=== PATIENT | male | born 1960 | race Two or more races ===

== ENCOUNTER → 2024-11-10 | Outpatient (CLI) | payer MEDICAID, SELFPAY ==
--- NOTE | 2024-11-10 | XR_ITS ---
Examination: CT left lower extremity without intravenous contrast, without contrast. 2-D sagittal reconstructions. 2-D coronal reconstructions. 3-D reconstructions. Date and time of exam:November 10, 2024 11:50 AM INDICATIONS: Diagnosis primary osteoarthritis left knee left knee pain 5 years CTDI: vol (mGy):9.22 DLP: (mGycm):726 Technique: Multiple 1.25 mm axial sections of the left lower extremity without intravenous contrast have been obtained. 2-D sagittal and coronal reconstructions have been obtained. 3-D reconstructions have been obtained. Low dose protocols were performed. One or more of the following dose reduction techniques were used; automated exposure control, adjustment of the mA and/or KV according to patient size, use of iterative reconstruction technique. Findings: Moderate osteopenia Moderate narrowing left hip joint No left hip fracture or dislocation Left knee advanced tricompartment osteoarthritis, severe narrowing medial lateral and patellofemoral joints with osteophyte formation IMPRESSION: Advanced left knee tricompartment osteoarthritis
== END | disposition home or self-care (01) ==
PROVIDERS: Referring Provider Orthopaedic Surgery Adult Reconstructive Orthopaedic Surgery; Visit Provider Orthopaedic Surgery Adult Reconstructive Orthopaedic Surgery
DX: M17.12 Unilateral primary osteoarthritis, left knee (principal)
CPT/HCPCS: 73700

== ENCOUNTER 2024-11-14 07:54 | Outpatient (AMB) | payer MEDICAID, SELFPAY ==
[2024-11-14 08:20] VITALS: BP 148/88; PULSE 67; RESP 19; TEMP 36.6; O2SAT 92; BMI 29.5
--- NOTE | 2024-11-14 08:20 | PD.ORTHCLVIS ---
Vital signs 11/14/24 08:20 Height 1.65 m Height Method Stated Weight 80.513 kg Weight Measurement Method Standing Scale BMI 29.5 BP 148/88 H Blood Pressure Source Automatic Cuff Blood Pressure Location Left Upper Arm Position Sitting Respiration 19 Pulse 67 Pulse Source Monitor Temp 97.9 F Temp Source Temporal Artery Scan Pulse Oximetry (%) 92 L Oxygen Delivery Method Room Air Med/Allergies Allergies & Medications Allergies No Known Drug Allergies Allergy (Verified 11/24/24 10:45) Medication Reconciliation aspirin 81 mg tablet,delayed release 81 mg PO QDAY 07/29/24 [History Confirmed 11/21/24] atorvastatin 40 mg tablet 40 mg PO QDAY 07/29/24 [History Confirmed 11/21/24] diclofenac sodium 1 % topical gel 2 g topical QID 07/29/24 [History Confirmed 11/21/24] empagliflozin 25 mg tablet (Jardiance) 25 mg PO QAM 11/21/24 [History Confirmed 11/21/24] escitalopram oxalate 10 mg tablet 10 mg PO QDAY 11/21/24 [History Confirmed 11/21/24] gabapentin 100 mg capsule 100 mg PO QDAY 11/21/24 [History Confirmed 11/21/24] ibuprofen 800 mg tablet (IBU) 800 mg PO Q8H PRN pain 11/21/24 [History Confirmed 11/21/24] losartan 100 mg tablet 100 mg PO QDAY 11/21/24 [History Confirmed 11/21/24] metformin 850 mg tablet 850 mg PO QDAY 11/21/24 [History Confirmed 11/21/24] semaglutide 1 mg/dose (2 mg/1.5 mL) subcutaneous pen injector 2 mg subcut QWEEK 11/21/24 [History Confirmed 11/21/24] Exam Exam Patient is in no acute distress and is cooperative with the examination today. Breathing is nonlabored. Patient has a normal mood and affect. Bilateral extremities were evaluated and demonstrates sensation intact to light touch. Palpable pedal pulses are present. No significant edema is present. Bilateral hips were examined. The patient has no pain with log roll of the hips. Internal rotation to 30 degrees and external rotation to 30 degrees is painless. Negative FADIR. Right knee was examined today. The right knee is in reasonable alignment. Range of motion from 0-120 degrees. Knee is stable to varus and valgus as well as AP translation with <5mm. Patient has a negative McMurrays. There is no pain with patellofemoral compression and no crepitus noted. The knee is nontender to palpation. Left knee was examined today. The left knee is in varus alignment. Range of motion from 0-115 degrees. Knee is stable to varus and valgus as well as AP translation with <5mm. Patient has a negative McMurrays. There is no pain with patellofemoral compression and no crepitus noted. The knee is tender to palpation medially. Assessment and Plan Problem List (1) Osteoarthritis of left knee: Status: Acute Plan Patient is a 64-year-old male with left knee pain and left knee arthritis. We discussed nonoperative and operative options. The pain is affecting his quality life wound as discussed total knee replacement is a reasonable option We would have to remove the tibial screw. The nature and purpose of the total knee replacement, alternative method(s) of treatment, the material risks involved, and the possibility of complications were fully explained to the patient. The patient does NOT have any of the following contraindications to TKA: - Active infection of the knee joint, OR - Active systemic bacteremia, OR - Active skin infection or open wound at surgical site, OR - Neuropathic arthritis, OR - Severe, rapidly progressive neurological disease, OR - Severe medical condition that makes risks of surgery outweigh the potential benefit The patient was told the most common risks and complications associated with a total knee replacement include, but are not limited to: blood clots in the leg, fatal pulmonary embolism, dislocation of the prosthesis, intraoperative and postoperative fractures of the femur or tibia, infection, failure of the prosthesis or grafting materials, complications from anesthesia, reactions to blood transfusions, postoperative leg length inequality, instability of the knee replacement, nerve damage or injury, vascular injury, delayed wound healing, infection, other injury or even . In addition, there are risks associated with anesthesia given during this operation. Also, the patient was told that after undergoing a total knee replacement there may still be persistent pain or disability. The patient was informed that the success of this operation in part depends upon the mechanical devices which are going to be implanted and that these devices can fail or malfunction, and may need to be repaired or replaced and there are no guarantees as to the longevity of this device or its parts and that it or its parts could fail prematurely. The patient was also notified that during the course of surgery, there may be a need to use bone graft from donors, and that any bone graft used will be carefully screened for communicable diseases, including AIDS, hepatitis, Jameson-Creutzfeldt, or other diseases, but despite the screening procedures, there is a small chance that they could contract one of these diseases. Finally, the patient was asked to follow completely and fully with all advice and recommended treatments, and that recovery and ultimate outcome are affected by their compliance with recommended treatment. We discussed the risks, benefits and treatment alternatives, and the patient is interested in proceeding with surgery. We will try to set this up as expeditiously as possible. Office Procedures GNS Level of Care Nursing/Assessment Patient Status: Established Patient Nursing Assessment/Reassesment: Medication Reconciliation, Update PMH in EMR and Vital Signs Coordination of Care: Complex Care and Chronic Disease 1-5, Education Complex Pt/Fam, Consent,records obtained, informed consent, Results/Orders obtained and Staff clarify orders Established Patient Charge Established Patient Point Assignment: 95 Established Patient Point Charge: EP Level 3 (80-115) MA Intake Visit Data Collection New Patient or Established: Established Patient (seen at [facility] within 3 years) Reason for Visit:: PRE OP L TKA Seen by Clinical Staff ONLY (RN/MA): No Cytogenetics Laboratory Manager Required: No PCP or OBGYN visit in last 3 months: Yes Hx Now: No Do You Feel Safe at Home: Yes Authorities Contacted: N/A Questionairres Past Medical History Past Medical History Have you ever been diagnosed with any of the following: Cardiology Problems Hypertension: Yes Respiratory Problems Smoking: No Smoking Cessation Counseling: No Smoking Exposure: No Tobacco Use: No Subjective Visit Visit for: follow up visit and knee (LEFT) Immunization / Flu Flu Vaccine in the Last 12 Months: No Flu Vaccine Exclusion Criteria: No Exclusion Criteria History of Present Illness Chief complaint: Left knee pain Eduardo is a pleasant 64-year-old male with left knee pain and left knee arthritis. She does have a prior ACL surgery and 2 screws. We discussed we will remove it during surgery most likely, at least on the tibial side. Reports the pain is affecting his quality life and happiness. Pain Pain level (0-10): 8 Pain duration: WITH MOVEMENT Pain location: inside (medial) and anterior Pain quality: sharp and aching Pain timing: increases with activity and stairs Associated signs & symptoms: none Ambulatory data Ambulatory device: none Treatments Improvement with previous injections: No Improvement with PT: No Improvement with NSAIDS: no Review of Systems Review of Systems: All systems negative unless otherwise noted in HPI.
== END 2024-11-14 08:34 | disposition home or self-care (01) ==
LOC: HODSRG 07:54
PROVIDERS: Supervising Provider Orthopaedic Surgery Adult Reconstructive Orthopaedic Surgery; Visit Provider Orthopaedic Surgery Adult Reconstructive Orthopaedic Surgery
DX: M17.12 Unilateral primary osteoarthritis, left knee (principal); M25.562 Pain in left knee; I10 Essential (primary) hypertension
CPT/HCPCS: 99213; G0463

== ENCOUNTER 2024-11-24 10:30 | Day surgery (SDC) | payer MEDICAID, SELFPAY ==
--- NOTE | 2024-11-21 07:30 | EKG_ITS ---
[facility] Test Date: 2024-11-21 Pat Name: PARADISE LINARES Department: Room: - Gender: Male Information Assurance: MANOLO : 1960 Requested By: Mitesh Guallpa Order Number: [id number] Reading MD: Mitesh Guallpa Measurements Intervals [place] Rate: 65 P: 32 DE: 192 QRS: 30 QRSD: 123 T: 30 QT: 377 QTc: 393 Interpretive Statements SINUS RHYTHM MODERATE INTRAVENTRICULAR CONDUCTION DELAY NONSPECIFIC T-WAVE ABNORMALITY No previous ECG available for comparison /store/[email or web address]/[id number]
[2024-11-21 10:00] VITALS: BMI 29.3
[2024-11-21 10:51] LABS: Basophils % (Auto) 1 % (0-2.5); Eosinophils # (Auto) 0.1 Thou/mm3 (0.0-0.5); Eosinophils % (Auto) 2 % (0-10); Hematocrit 43.7 % (41.0-53.0); Hemoglobin 15.2 g/dL (13.5-16.0); Immature Granulocytes % (Auto) 0 % (0-0); Immature Granulocytes Auto 0.01 Thou/mm3 (0.00-0.00); Lymphocytes # (Auto) 2.5 Thou/mm3 (1.0-4.8); Lymphocytes % (Auto) 42 % (10-50); Mean Corpuscular HGB Conc 34.8 g/dl (31.0-37.0); Mean Corpuscular Hemoglobin 31.1 pg (25.0-35.0); Mean Corpuscular Volume 89 fL (80-100); Monocytes # (Auto) 0.4 Thou/mm3 (0.0-0.8); Monocytes % (Auto) 7 % (0-12); Neutrophils # (Auto) 2.9 Thou/mm3 (1.8-7.7); Neutrophils % (Auto) 49 % (37-80); Nucleated Red Blood Cell % 0 /100 WBC (0); Platelet Count 154 Thou/mm3 (140-440); RDW Standard Deviation 39.7 fL (35.1-43.9); Red Blood Count 4.89 Miln/mm3 (4.50-5.90)
[2024-11-21 10:59] LABS: Partial Thromboplastin Time 25.9 Seconds (22.0-36.0); Prothrombin Time 11.3 Seconds (9.0-12.2)
[2024-11-21 11:01] LABS: Alanine Aminotransferase 20 U/L (10-49); Albumin, Serum 4.8 gm/dL (3.4-4.8); Albumin/Globulin Ratio 2.2 (1.2-2.2); Alkaline Phosphatase 86 U/L (46-116); Anion Gap 7 (7-16); Aspartate Amino Transferase 20 U/L (0-34); BUN/Creatinine Ratio 17 Ratio (12-20); Bilirubin,Total 0.4 mg/dL (0.3-1.2); Blood Urea Nitrogen 15 mg/dL (9-23); Calcium 9.6 mg/dL (8.3-10.6); Calcium (Corrected) 9.6 mg/dL (8.5-10.1); Chloride 110 mMol/L (98-107); Creatinine (Component) 0.9 mg/dL (0.6-1.3); Estimated Creatinine Clearance 85.8 mL/min (>60); Globulin 2.2 gm/dL (2.3-3.5); Glucose 95 mg/dL (74-106); Osmolality,Calculated 287 (275-295); Potassium 4.6 mMol/L (3.4-5.1); Sodium 144 mMol/L (136-145); eGFR > 60 See Note
[2024-11-24] VITALS (15 sets, daily range): BP systolic 135–169; BP diastolic 83–99; PULSE 65–76; RESP 15–20; TEMP 36.2–37; O2SAT 94–98; BMI 28.3
--- NOTE | 2024-11-24 10:44 | CHAP ---
Patient expressed gratitude for prayer before their procedure.
[2024-11-24] MEDS: RINGERS LACTATED 1000 ML 1,000 ML 20 ML IV (11:15)
[2024-11-24] MEDS: PREGABALIN 75 MG CAPSULE PO (11:16)
[2024-11-24] MEDS: MELOXICAM 7.5 MG TABLET PO (11:16)
[2024-11-24] MEDS: ACETAMINOPHEN 325 MG TABLET 650 MG PO (11:16)
--- NOTE | 2024-11-24 14:59 | XR_ITS ---
Examination: Left knee 2 views Technique one AP lateral left knee 2 views Exam date and time: Every 2024 1634 hours INDICATIONS: Postop knee arthroplasty today. FINDINGS: Moderate osteopenia. Total left knee arthroplasty. Satisfactory alignment. No fracture IMPRESSION: Total left knee arthroplasty with satisfactory alignment
--- NOTE | 2024-11-24 15:01 | ESOP_ITS ---
Date of Procedure 11/24/24 Pre Op Diagnosis left knee posttraumatic arthritis Post Op Diagnosis left knee posttraumatic arthritis Procedure left total knee replacement robotic Findings full thickness cartilage loss and ostoephytes Procedure Description Indication: The patient is a 64 year old who has a long history of left knee pain. X-rays show degenerative arthritis involving the knee. Over the past several years the patient has had increasing pain, progressive limitation in function. He has failed conservative measures including activity modification, physical therapy, injections, anti-inflammatories, and assistive devices. After a lengthy discussion of the risks and benefits, the patient presents now for total knee replacement. The nature and purpose of the total knee replacement, alternative method(s) of treatment, the material risks involved, and the possibility of complications were fully explained to the patient. The patient was told the most common risks and complications associated with a total knee replacement include, but are not limited to blood clots in the leg, fatal pulmonary embolism, dislocation of the prosthesis, intraoperative and postoperative fractures of the femur or tibia, infection, failure of the prosthesis or grafting materials, complications from anesthesia, reactions to blood transfusions, postoperative leg length inequality, instability of the knee replacement, nerve damage or injury, vascular injury, delayed wound healing, infections, other injury or even . In addition, there are risks associated with anesthesia given during this operation, temporary or permanent numbness on the skin lateral to the incision can be a complication unique to total knee surgery, and kneeling can be painful after knee replacement surgery. Also, the patient was told that after undergoing a total knee replacement there may still be pain or disability. We discussed with the patient that we will be using a robot-assisted technology. We discussed that there is a possibility of converting to manual instrumentation. The patient was informed that the success of this operation in part depends upon the mechanical devices which are going to be implanted and that these devices can fail or malfunction, and may need to be repaired or replaced and there are no guarantees as to the longevity of this device or its part and that it or its parts could fail prematurely. Finally, the patient was asked to follow completely and fully with all advice and recommended treatments, and that recovery and ultimate outcome are affected by their compliance with recommended treatment. Surgical technique: Patient was marked and consented in the pre-operative area. The patient was brought to the operating room and placed on the operating table in a supine position. Prior to positioning, a timeout procedure was performed between the surgeon, the anesthesiologist, and the nursing staff where the patient and the operative side were identified and confirmed. After adequate general anesthetic was obtained, the left lower extremity was prepped and draped in the usual sterile fashion. A weight based dose of Cefazolin were administered within 1 hour prior to incision. The robot was preregistered and calirated before the incision. The extremity was exsanguinated with an esmarch badge and tourniquet inflated to 250mmHg. A midline incision was made. A median parapatellar arthrotomy was made. The patella was subluxed laterally. A medial release was performed to expose the medial tibia. We first removed the prior tibial acl screw. His femoral and tibial pins were placed through an intra incisional manner for both cases. Every effort was made to ensure that the distalmost aspect of the pin was hung in the second cortex. The arrays were then tightened several times to ensure that it was fixed for the remainder of the case. Both femoral and tibial checkpoints were then placed. We then went through the registration process of the bone. We then assessed the knee deformity and attempted to correct it. We also used the robot to aid in judging laxity in both extension and flexion. Final based on laxity and alignment we changed the preoperative assessment to obtain proper proper implant positioning and to correct deformity. Attention was then placed to the tibia. We made a tibial cut using the robot ensuring that both the MCL and the patella tendon were protected with retractors. We then went to the femur and made the posterior cut followed by the anterior cut and the anterior chamfer. The bone was then removed and we made a distal femur cut and a posterior chamfer cut. We verified all cuts. A trial reduction was performed with a size 5 femoral component and a size 4 keeled tibial component. The patella tracked centrally, and no lateral retinacular release was necessary. The trial implants were removed. The arrays, pins, and checkpoints were all removed. We performed a verification that all pins were removed. The cut bone surfaces were lavaged. A size 5 left femoral component, a size 4 keeled tibial component were impacted into position. The knee was felt to be well balanced in the sagittal and coronal plane. The final [2x12] mm cruciate- substituting articular insert was impacted into the tibial tray. The knee was brought out to full extension, flexed up to 120 degrees. It was stable to varus and valgus stress and appropriately balanced in flexion and extension. The wounds were copiously irrigated following deflation of tourniquet. The medial retinaculum was reapproximated with #1 vicryl and quill. The subcutaneous tissues were closed with 0 and 2-0 interrupted Vicryl. The skin was closed with 3-0 Monofilament V loc suture. A sterile dressing was applied. The patient was transferred to a bed and brought to recovery in stable condition. The patient tolerated the procedure well. There were no intraoperative complications. Sponge and needle counts were correct times 2. As the attending surgeon, I attest I was present and performed the entire operation. Grafts/Implants Size 5 CR Femur Size 4 Tibia 12mm poly CS Anesthesia spinal [facility] Pathology / specimen None Pathology comment: none Estimated Blood Loss 150 Condition Stable Disposition same day Surgeon Juarez Mondragon MD Surgical Staff Operation Date: 11/24/24 14:00 Case Staff VB DEVELOPER: Mitesh Guallpa RNprogram director/morning show host: Kaycee Benjamin
--- NOTE | 2024-11-24 15:17 | SUR.PHASEI ---
pt arrived to PACU via gurney awake, alert, able to follow commands, breathing unlabored, dressing to left lower extremity clean, dry, and intact, report from Jesenia RN, Maximino MOSLEY, and Dr Guallpa
--- NOTE | 2024-11-24 16:30 | SUR.PHASEII ---
Received report on pt. s/p surgery from Sharon Weldon RN. Pt. resting, eating jell-o, VSS, no c/o pain or nausea at this time. Dressing to left knee CDI, no c/o pain or nausea at this time.
--- NOTE | 2024-11-24 16:31 | SUR.PHASEII ---
Report to Nuvia
--- NOTE | 2024-11-24 17:40 | SUR.PHASEII ---
Pt. sitting up in bed, no c/o pain or nausea, tolerating jello and sips of water.
--- NOTE | 2024-11-24 18:00 | SUR.PHASEII ---
Physical therapist Jen at bedside, assisting pt. with ambulation with walker.
--- NOTE | 2024-11-24 19:00 | SUR.PHASEII ---
Pt. meets criteria for discharge, VSS, no c/o pain or nausea at this time, VSS, dressing to left knee CDI, physical therapist signed off for pt. to be discharged, IV discontinued without complications, discharge instructions provided to pt. and pt.'s friend, verbalized understanding. Pt. escorted to vehicle via w/c with all of belongings by staff.
--- NOTE | 2024-11-27 13:16 | PD.ANESPROG ---
Documentation for date of: 11/27/24 POST ANESTHESIA NOTE: Patient had spinal anesthesia and L adductor canal block for L TKA on 11/24/24. I just called his number for follow up but no answer. Mitesh Guallpa MD Anesthesia Progress Note Progress Note Most recent Vital Signs: Last Vital Signs Temp 97.2 F 11/24/24 18:00 Pulse 73 11/24/24 18:00 Resp 20 11/24/24 18:00 BP 161/96 H 11/24/24 18:00 Pulse Ox 95 11/24/24 18:00
== END 2024-11-24 19:00 | disposition home or self-care (01) ==
PROVIDERS: Anesthesiology; PCP Nurse Practitioner Family; Referring Provider Orthopaedic Surgery Adult Reconstructive Orthopaedic Surgery; Visit Provider Orthopaedic Surgery Adult Reconstructive Orthopaedic Surgery
PROC: (CPT 27447; principal; 2024-11-24 14:00)
DX: M17.32 Unilateral post-traumatic osteoarthritis, left knee (principal); Z01.810 Encounter for preprocedural cardiovascular examination
CPT/HCPCS: 27447; 20985; 36415; 73560; 80053; 85025; 85610; 85730; 93005; 97162; A4217; C1713; C1776; J0690; J1100; J2250; J2704; J2795; J3010; J3490; J7030; J7120; J7999; A4648; A4649; A9270

== ENCOUNTER 2024-12-09 08:36 | Outpatient (AMB) | payer MEDICAID, SELFPAY ==
[2024-12-09 08:57] VITALS: BP 181/97; PULSE 75; RESP 18; TEMP 36.4; O2SAT 98; BMI 28.3
--- NOTE | 2024-12-09 08:57 | ORTHONT_ITS ---
Vital signs 12/09/24 08:57 Height 1.68 m Height Method Stated Weight 79.917 kg Weight Measurement Method Standing Scale BMI 28.3 BP 181/97 H Blood Pressure Source Automatic Cuff Blood Pressure Location Left Upper Arm Position Sitting Respiration 18 Pulse 75 Pulse Source Monitor Temp 97.6 F Temp Source Temporal Artery Scan Pulse Oximetry (%) 98 Oxygen Delivery Method Room Air Med/Allergies Allergies & Medications Allergies No Known Drug Allergies Allergy (Verified 12/09/24 08:58) Medication Reconciliation atorvastatin 40 mg tablet 40 mg PO QDAY 07/29/24 [History Confirmed 12/09/24] diclofenac sodium 1 % topical gel 2 g topical QID 07/29/24 [History Confirmed 12/09/24] empagliflozin 25 mg tablet (Jardiance) 25 mg PO QAM 11/21/24 [History Confirmed 12/09/24] escitalopram oxalate 10 mg tablet 10 mg PO QDAY 11/21/24 [History Confirmed 12/09/24] gabapentin 100 mg capsule 100 mg PO QDAY 11/21/24 [History Confirmed 12/09/24] ibuprofen 800 mg tablet (IBU) 800 mg PO Q8H PRN pain 11/21/24 [History Confirmed 12/09/24] losartan 100 mg tablet 100 mg PO QDAY 11/21/24 [History Confirmed 12/09/24] metformin 850 mg tablet 850 mg PO QDAY 11/21/24 [History Confirmed 12/09/24] semaglutide 1 mg/dose (2 mg/1.5 mL) subcutaneous pen injector 2 mg subcut QWEEK 11/21/24 [History Confirmed 12/09/24] acetaminophen 500 mg tablet (Acetaminophen Extra Strength) 1,000 mg (2 x 500 mg) PO Q6H PRN pain #90 tabs 11/24/24 [Rx Confirmed 12/09/24] aspirin 81 mg tablet,delayed release 81 mg PO BID #60 tabs 11/24/24 [Rx Confirmed 12/09/24] doxycycline hyclate 100 mg tablet 100 mg PO BID #14 tabs 11/24/24 [Rx Confirmed 12/09/24] gabapentin 300 mg capsule 300 mg PO .qhs #30 caps 11/24/24 [Rx Confirmed 12/09/24] sennosides 8.6 mg-docusate sodium 50 mg tablet (Senna-S) 1 tab-cap PO QDAY #30 tabs 11/24/24 [Rx Confirmed 12/09/24] cyclobenzaprine 7.5 mg tablet 7.5 mg PO QHS PRN muscle spasm #30 tabs 12/09/24 [Rx] oxycodone 5 mg tablet 5 mg PO Q6H PRN pain #28 tabs 12/09/24 [Rx] Exam Exam Patient is in no acute distress and is cooperative with the examination today. Breathing is nonlabored. Patient has a normal mood and affect. Bilateral extremities were evaluated and demonstrates sensation intact to light touch. Palpable pedal pulses are present. No significant edema is present. Bilateral hips were examined. The patient has no pain with log roll of the hips. Internal rotation to 30 degrees and external rotation to 30 degrees is painless. Negative FADIR. Right knee was examined today. The right knee is in reasonable alignment. Range of motion from 0-120 degrees. Knee is stable to varus and valgus as well as AP translation with <5mm. Patient has a negative McMurrays. There is no pain with patellofemoral compression and no crepitus noted. The knee is nontender to palpation. Left knee was examined today.Left knee incision is clean dry and intact. Range of motion is 5 to 70 degrees Assessment and Plan Problem List (1) Osteoarthritis of left knee: Status: Acute Plan Patient is a 64-year-old male with left knee pain and left knee arthritis Status post left total knee replacement. He is working with physical therapy. The swelling has decreased. We want him to work with therapy aggressively at this point. We will get new x-rays at the next visit Office Procedures GNS Level of Care Nursing/Assessment Patient Status: Established Patient Nursing Assessment/Reassesment: Medication Reconciliation, Update PMH in EMR and Vital Signs Coordination of Care: Complex Care and Chronic Disease 1-5, Education Complex Pt/Fam, Consent,records obtained, informed consent, Results/Orders obtained and Staff clarify orders Established Patient Charge Established Patient Point Assignment: 95 Established Patient Point Charge: EP Level 3 (80-115) MA Intake Visit Data Collection New Patient or Established: Established Patient (seen at [facility] within 3 years) Reason for Visit:: POST OP L TKA Social Sciences Instructor Required: No PCP or OBGYN visit in last 3 months: Yes Hx Now: No Do You Feel Safe at Home: Yes Authorities Contacted: N/A Questionairres Past Medical History Past Medical History Have you ever been diagnosed with any of the following: Neurological Problems Seizures: No Cardiology Problems Hypercholesterolemia: Yes Congestive Heart Failure: No Hypertension: Yes Respiratory Problems Chronic Obstructive Pulmonary Disease (COPD): No Smoking: No Smoking Cessation Counseling: No Smoking Exposure: No Tobacco Use: No Stomache/Intestinal Problems Hepatitis: No Genital/Urinary Problems Renal Disease: No Musculoskeletal Problems Arthritis: Yes Head,Eye,Nose,Throat Problems Cataracts: Yes (no mature) Endocrine Problems Diabetes Mellitus Type 1: No Diabetes Mellitus Type 2: Yes Other Problems Hospitalization: No Shingles: No Blood Transfusions: No Blood Transfusion Reaction: No Anesthesia Reactions: No Chicken Pox: Yes Cancer: No Subjective Visit Visit for: follow up visit, post op #1 and knee Immunization / Flu Flu Vaccine in the Last 12 Months: No Flu Vaccine Exclusion Criteria: No Exclusion Criteria History of Present Illness Chief complaint: Left knee pain Eduardo is a pleasant 64-year-old male with left knee pain and left knee arthritis. 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 He still a little stiff. The pain is improving Pain Pain level (0-10): 8 Pain duration: CONSTANT Pain location: posterior Pain quality: aching Pain timing: increases with activity and stairs Associated signs & symptoms: none Ambulatory data Ambulatory device: walker Treatments Improvement with previous injections: No Improvement with PT: No Improvement with NSAIDS: no Review of Systems Review of Systems: All systems negative unless otherwise noted in HPI.
== END 2024-12-09 09:06 | disposition home or self-care (01) ==
LOC: HODSRG 08:36
PROVIDERS: Supervising Provider Orthopaedic Surgery Adult Reconstructive Orthopaedic Surgery; Visit Provider Orthopaedic Surgery Adult Reconstructive Orthopaedic Surgery
DX: M17.12 Unilateral primary osteoarthritis, left knee (principal); M25.562 Pain in left knee; Z96.652 Presence of left artificial knee joint; I10 Essential (primary) hypertension; E78.00 Pure hypercholesterolemia, unspecified; E11.9 Type 2 diabetes mellitus without complications
CPT/HCPCS: 99213; G0463

== ENCOUNTER 2025-01-29 07:58 | Outpatient (AMB) | payer BC, SELFPAY ==
[2025-01-29 08:13] VITALS: BP 150/90; PULSE 70; RESP 18; TEMP 36.6; O2SAT 95; BMI 28.7
--- NOTE | 2025-01-29 08:13 | PD.ORTHCLVIS ---
Vital signs 01/29/25 08:13 Height 1.68 m Height Method Stated Weight 80.995 kg Weight Measurement Method Standing Scale BMI 28.7 BP 150/90 H Blood Pressure Source Automatic Cuff Blood Pressure Location Right Upper Arm Position Sitting Respiration 18 Pulse 70 Pulse Source Monitor Temp 98 F Temp Source Temporal Artery Scan Pulse Oximetry (%) 95 Oxygen Delivery Method Room Air Med/Allergies Allergies & Medications Allergies No Known Drug Allergies Allergy (Verified 01/29/25 08:14) Medication Reconciliation atorvastatin 40 mg tablet 40 mg PO QDAY 07/29/24 [History Confirmed 01/29/25] diclofenac sodium 1 % topical gel 2 g topical QID 07/29/24 [History Confirmed 01/29/25] empagliflozin 25 mg tablet (Jardiance) 25 mg PO QAM 11/21/24 [History Confirmed 01/29/25] escitalopram oxalate 10 mg tablet 10 mg PO QDAY 11/21/24 [History Confirmed 01/29/25] gabapentin 100 mg capsule 100 mg PO QDAY 11/21/24 [History Confirmed 01/29/25] ibuprofen 800 mg tablet (IBU) 800 mg PO Q8H PRN pain 11/21/24 [History Confirmed 01/29/25] losartan 100 mg tablet 100 mg PO QDAY 11/21/24 [History Confirmed 01/29/25] metformin 850 mg tablet 850 mg PO QDAY 11/21/24 [History Confirmed 01/29/25] semaglutide 1 mg/dose (2 mg/1.5 mL) subcutaneous pen injector 2 mg subcut QWEEK 11/21/24 [History Confirmed 01/29/25] acetaminophen 500 mg tablet (Acetaminophen Extra Strength) 1,000 mg (2 x 500 mg) PO Q6H PRN pain #90 tabs 11/24/24 [Rx Confirmed 01/29/25] aspirin 81 mg tablet,delayed release 81 mg PO BID #60 tabs 11/24/24 [Rx Confirmed 01/29/25] doxycycline hyclate 100 mg tablet 100 mg PO BID #14 tabs 11/24/24 [Rx Confirmed 01/29/25] gabapentin 300 mg capsule 300 mg PO .qhs #30 caps 11/24/24 [Rx Confirmed 01/29/25] sennosides 8.6 mg-docusate sodium 50 mg tablet (Senna-S) 1 tab-cap PO QDAY #30 tabs 11/24/24 [Rx Confirmed 01/29/25] cyclobenzaprine 7.5 mg tablet 7.5 mg PO QHS PRN muscle spasm #30 tabs 12/09/24 [Rx Confirmed 01/29/25] oxycodone 5 mg tablet 5 mg PO Q6H PRN pain #28 tabs 12/09/24 [Rx Confirmed 01/29/25] Exam Exam Patient is in no acute distress and is cooperative with the examination today. Breathing is nonlabored. Patient has a normal mood and affect. Bilateral extremities were evaluated and demonstrates sensation intact to light touch. Palpable pedal pulses are present. No significant edema is present. Bilateral hips were examined. The patient has no pain with log roll of the hips. Internal rotation to 30 degrees and external rotation to 30 degrees is painless. Negative FADIR. Right knee was examined today. The right knee is in reasonable alignment. Range of motion from 0-120 degrees. Knee is stable to varus and valgus as well as AP translation with <5mm. Patient has a negative McMurrays. There is no pain with patellofemoral compression and no crepitus noted. The knee is nontender to palpation. Left knee was examined today.Left knee incision is clean dry and intact. Range of motion is 0 to 95 degrees Assessment and Plan Problem List (1) History of total left knee replacement: Status: Acute Plan Patient is a pleasant 64-year-old male status post left total knee replacement. His range of motion continues to improve. He reports the knee has been very little pain and He is very happy with his pain relief. We discussed that he is borderline on whether he needs a manipulation. He would like to continue and does not want a manipulation as he is happy with his range of motion. He should continue physical therapy Office Procedures GNS Level of Care Nursing/Assessment Patient Status: Established Patient Nursing Assessment/Reassesment: Medication Reconciliation, Update PMH in EMR and Vital Signs Coordination of Care: Complex Care and Chronic Disease 1-5, Education Complex Pt/Fam, Consent,records obtained, informed consent, Results/Orders obtained and Staff clarify orders Established Patient Charge Established Patient Point Assignment: 95 Established Patient Point Charge: EP Level 3 (80-115) [place] Intake Visit Data Collection New Patient or Established: Established Patient (seen at [facility] within 3 years) Reason for Visit:: 6 WEEK S/P TKA Seen by Clinical Staff ONLY (RN/MA): No Verbal consent obtained for Telemed visit?: No Child Life Therapist Required: No PCP or OBGYN visit in last 3 months: Yes Hx Now: No Do You Feel Safe at Home: Yes Authorities Contacted: N/A Questionairres Past Medical History Past Medical History Have you ever been diagnosed with any of the following: Neurological Problems Seizures: No Cardiology Problems Hypercholesterolemia: Yes Congestive Heart Failure: No Hypertension: Yes Respiratory Problems Chronic Obstructive Pulmonary Disease (COPD): No Smoking: No Smoking Cessation Counseling: No Smoking Exposure: No Tobacco Use: No Stomache/Intestinal Problems Hepatitis: No Genital/Urinary Problems Renal Disease: No Musculoskeletal Problems Arthritis: Yes Head,Eye,Nose,Throat Problems Cataracts: Yes (no mature) Endocrine Problems Diabetes Mellitus Type 1: No Diabetes Mellitus Type 2: Yes Other Problems Hospitalization: No Shingles: No Blood Transfusions: No Blood Transfusion Reaction: No Anesthesia Reactions: No Chicken Pox: Yes Cancer: No Subjective Visit Visit for: follow up visit, post op #2 and knee Immunization / Flu Flu Vaccine in the Last 12 Months: No Flu Vaccine Exclusion Criteria: No Exclusion Criteria History of Present Illness Chief complaint: 6 WEEKS S/P TKA Date of 1st surgery (if applicable): 11/24/24 Eduardo is a pleasant 64-year-old male with left knee pain and left knee arthritis. 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 He reports the pain has improved tremendously Personal History Red flag PMH: BMI BMI Counceling provided: Yes Pain Pain level (0-10): 0 Pain duration: NONE Pain location: posterior Pain quality: aching Pain timing: increases with activity and stairs Associated signs & symptoms: none Ambulatory data Ambulatory device: none Treatments Improvement with previous injections: No Improvement with PT: No Improvement with NSAIDS: no Review of Systems Review of Systems: All systems negative unless otherwise noted in HPI.
== END 2025-01-29 08:28 | disposition home or self-care (01) ==
LOC: HODSRG 07:58
PROVIDERS: Supervising Provider Orthopaedic Surgery Adult Reconstructive Orthopaedic Surgery; Visit Provider Orthopaedic Surgery Adult Reconstructive Orthopaedic Surgery
DX: Z96.652 Presence of left artificial knee joint (principal); M25.562 Pain in left knee; M17.12 Unilateral primary osteoarthritis, left knee; I10 Essential (primary) hypertension; E78.00 Pure hypercholesterolemia, unspecified
CPT/HCPCS: 99213; G0463

== ENCOUNTER 2025-05-05 14:38 | Outpatient (AMB) | payer BC, SELFPAY ==
[2025-05-05 15:03] VITALS: BP 121/71; PULSE 79; RESP 16; TEMP 36.4; O2SAT 98; BMI 28.8
--- NOTE | 2025-05-05 15:03 | PD.ORTHCLVIS ---
Vital signs 05/05/25 15:03 Height 1.68 m Height Method Measured Weight 81.335 kg Weight Measurement Method Standing Scale BMI 28.8 BP 121/71 Blood Pressure Source Automatic Cuff Blood Pressure Location Left Upper Arm Position Sitting Respiration 16 Pulse 79 Pulse Source Monitor Temp 97.6 F Temp Source Temporal Artery Scan Pulse Oximetry (%) 98 Oxygen Delivery Method Room Air Med/Allergies Allergies & Medications Allergies No Known Drug Allergies Allergy (Verified 05/05/25 15:04) Medication Reconciliation atorvastatin 40 mg tablet 40 mg PO QDAY 07/29/24 [History Confirmed 05/05/25] diclofenac sodium 1 % topical gel 2 g topical QID 07/29/24 [History Confirmed 05/05/25] empagliflozin 25 mg tablet (Jardiance) 25 mg PO QAM 11/21/24 [History Confirmed 05/05/25] escitalopram oxalate 10 mg tablet 10 mg PO QDAY 11/21/24 [History Confirmed 05/05/25] gabapentin 100 mg capsule 100 mg PO QDAY 11/21/24 [History Confirmed 05/05/25] ibuprofen 800 mg tablet (IBU) 800 mg PO Q8H PRN pain 11/21/24 [History Confirmed 05/05/25] losartan 100 mg tablet 100 mg PO QDAY 11/21/24 [History Confirmed 05/05/25] metformin 850 mg tablet 850 mg PO QDAY 11/21/24 [History Confirmed 05/05/25] semaglutide 1 mg/dose (2 mg/1.5 mL) subcutaneous pen injector 2 mg subcut QWEEK 11/21/24 [History Confirmed 05/05/25] acetaminophen 500 mg tablet (Acetaminophen Extra Strength) 1,000 mg (2 x 500 mg) PO Q6H PRN pain #90 tabs 11/24/24 [Rx Confirmed 05/05/25] aspirin 81 mg tablet,delayed release 81 mg PO BID #60 tabs 11/24/24 [Rx Confirmed 05/05/25] doxycycline hyclate 100 mg tablet 100 mg PO BID #14 tabs 11/24/24 [Rx Confirmed 05/05/25] gabapentin 300 mg capsule 300 mg PO .qhs #30 caps 11/24/24 [Rx Confirmed 05/05/25] sennosides 8.6 mg-docusate sodium 50 mg tablet (Senna-S) 1 tab-cap PO QDAY #30 tabs 11/24/24 [Rx Confirmed 05/05/25] cyclobenzaprine 7.5 mg tablet 7.5 mg PO QHS PRN muscle spasm #30 tabs 12/09/24 [Rx Confirmed 05/05/25] oxycodone 5 mg tablet 5 mg PO Q6H PRN pain #28 tabs 12/09/24 [Rx Confirmed 05/05/25] Exam Exam Patient is in no acute distress and is cooperative with the examination today. Breathing is nonlabored. Patient has a normal mood and affect. Bilateral extremities were evaluated and demonstrates sensation intact to light touch. Palpable pedal pulses are present. No significant edema is present. Bilateral hips were examined. The patient has no pain with log roll of the hips. Internal rotation to 30 degrees and external rotation to 30 degrees is painless. Negative FADIR. Right knee was examined today. The right knee is in reasonable alignment. Range of motion from 0-120 degrees. Knee is stable to varus and valgus as well as AP translation with <5mm. Patient has a negative McMurrays. There is no pain with patellofemoral compression and no crepitus noted. The knee is nontender to palpation. Left knee was examined today.Left knee incision is clean dry and intact. Range of motion is 0 to 90 degrees Assessment and Plan Problem List (1) History of total left knee replacement: Status: Acute Plan Patient is a pleasant 64-year-old male status post left total knee replacement. he is a little stiff and can get to 90 degrees. We discussed revision knee replacement with downsizing the poly. He reports that he is fine in the pain is pretty much gone. He reports the motion limits him somewhat but not enough to want to get surgery. Will see him back in approximately 6 months for routine follow-up Office Procedures GNS Level of Care Nursing/Assessment Patient Status: Established Patient Nursing Assessment/Reassesment: Medication Reconciliation, Update PMH in EMR and Vital Signs Coordination of Care: Complex Care and Chronic Disease 1-5, Education Complex Pt/Fam, Consent,records obtained, informed consent, Results/Orders obtained and Staff clarify orders Established Patient Charge Established Patient Point Assignment: 95 Established Patient Point Charge: EP Level 3 (80-115) [place] Intake Visit Data Collection New Patient or Established: Established Patient (seen at [facility] within 3 years) Reason for Visit:: 3 MONTH F/U Seen by Clinical Staff ONLY (RN/MA): No Proof Clerk Required: No PCP or OBGYN visit in last 3 months: Yes Hx Now: No Do You Feel Safe at Home: Yes Authorities Contacted: N/A Questionairres Past Medical History Past Medical History Have you ever been diagnosed with any of the following: Neurological Problems Cerebrovascular Accident (CVA): No Transient Ischemic Attacks (TIA): No Dementia: No Alzheimer's Disease: No Parkinson's Disease: No Brain Tumor: No Meningitis: No Seizures: No Epilepsy: No Multiple Sclerosis: No Cerebral Palsy: No Amyotrophic Lateral Sclerosis (ALS/Aleida Gehrig's): No Guillain-[place] Syndrome: No Spina Bifida: No Paralysis: No Peripheral Neuropathy: No Dugan's Palsy: No Subdural Hematoma: No Migraine: No Head Trauma: No Spinal Cord Injury: No Traumatic Brain Injury: No Cardiology Problems Myocardial Infarction: No Cardiac Arrhythmia: No Atrial Fibrillation: No Angina: No Heart Murmur: No Coronary Artery Disease: No Atherosclerotic Heart Disease: No Peripheral Vascular Disease: No Hypercholesterolemia: Yes Aneurysm: No Congestive Heart Failure: No Congenital Heart Disease: No Valvular Heart Disease: No Rheumatic Fever: No Cardiomyopathy: No Edema: No Pericarditis: No Cellulitis: No Deep Vein Thrombosis: No Hypertension: Yes Hypotension: No Varicose Veins: No Respiratory Problems Chronic Obstructive Pulmonary Disease (COPD): No Asthma: No Bronchitis: No Emphysema: No Pneumonia: No Pulmonary Fibrosis: No Tuberculosis: No Pulmonary Embolism: No Pulmonary Edema: No Sleep Apnea: No CPAP Dependent: No Respiratory Aspiration: No Dyspnea: No Orthopnea: No Hx Cough: No Cough: No Wheezing: No Chest Deformities: No Smoking: No Smoking Cessation Counseling: No Smoking Exposure: No Tobacco Use: No Clubbing: No Exposure to Respiratory Irritants: No Intubation: No Stomache/Intestinal Problems Liver Cancer: No Hepatitis: No Cirrhosis: No Pancreatic Cancer: No Pancreatitis: No Celiac Disease: No Gall Bladder Disease: No Gastrointestinal Bleed: No Esophageal Varices: No Lopez's Esophagus: No Colitis: No Ulcerative Colitis: No Diverticulitis: No Diverticulosis: No Ulcer: No Colorectal Cancer: No Irritable Bowel: No Crohn's Disease: No Obstructive Bowel: No Hiatal Hernia: No Hemorrhoids: No Gastroesophageal Reflux Disease: No Polyps: No Obesity: No Genital/Urinary Problems Chronic Kidney Disease: No Renal Disease: No Kidney Stones: No Polycystic Kidney Disease: No Neurogenic Bladder: No Inguinal Hernia: No Dialysis: No Prostate Cancer: No Benign Prostatic Hyperplasia: No Reproductive Problems Breast Cancer: No Fibroids: No Genital Herpes: No Gonorrhea: No Syphilis: No Testicular Cancer: No Musculoskeletal Problems Muscular Dystrophy: No Myasthenia Gravis: No Marfan's Syndrome: No Bone Cancer: No Arthritis: Yes Rheumatoid Arthritis: No Osteoporosis: No Degenerative Disk Disease: No Gout: No Scoliosis: No Carpal Tunnel Syndrome: No Fibromyalgia: No Fractures: No Degenerative Joint Disease: No Osteomyelitis: No Poliovirus: No Head,Eye,Nose,Throat Problems Cataracts: Yes (no mature) Glaucoma: No Blind: No Retinal Detachment: No Macular Degeneration: No Chronic Ear Infections: No Deafness: No Eye Prosthesis: No Endocrine Problems Diabetes Mellitus Type 1: No Diabetes Mellitus Type 2: Yes Hypoglycemia: No Xin's Syndrome: No Mathew's Disease: No Hyperthyroidism: No Hypothyroidism: No Thyroid Cancer: No Parathyroid Disease: No Pituitary Disease: No Systemic Lupus Erythematosus: No Syndrome of Inappropriate Antidiuretic Hormone: No Adrenal Disease: No Graves' Disease: No Blood Problems Anemia: No Leukemia: No Hemophilia: No Thalassemia: No Sickle Cell Disease: No Clotting Problems: No Psychologic Problems Schizophrenia: No Recreational Drug Use: No Bipolar Disorder: No Depression: No Anxiety: No Behavior Problems: No Self-Mutilation: No Attention Deficit Disorder: No Attention Deficit Hyperactivity Disorder: No Depression: No Post Traumatic Stress Disorder: No Eating Disorder: No Other Problems Hospitalization: No Autoimmune Disease: No Down Syndrome: No Autism: No Developmental Delay: No Cosmetic Surgery: No Shingles: No Falls: No Blood Transfusions: No Blood Transfusion Reaction: No Anesthesia Reactions: No Organ Transplant: No Chemotherapy: No Radiation Therapy: No Hyperbaric Therapy: No MRSA: No VRSA: No Vancomycin-Resistant Enterococci: No Human Immunodeficiency Virus (HIV): No Chicken Pox: Yes Measles: No Mumps: No Rubella (N[place]alese Measles): No Pertussis: No Klebsiella Pneumoniae Carbapenemase Producing Bacteria: No Clostridium Difficile: No Hepatitis A: No Hepatitis B: No Hepatitis C: No Communicable Disease: No Cancer: No Lung Cancer: No Surgical History Angioplasty: No Appendectomy: No Bariatric Surgery: No Breast Surgery: No Cancer Surgery: No Carotid Endarterectomy: No Cholecystectomy: No Colectomy: No Colostomy: No Coronary Artery Bypass Graft: No Valve Replacement: No Herniorrhaphy: No Total Hip Replacement: No Total Knee Replacement: No Pacemaker: No Sinus Surgery: No Splenectomy: No Thyroidectomy: No Ureter Stent: No Subjective Visit Visit for: follow up visit and knee Immunization / Flu Flu Vaccine in the Last 12 Months: No Flu Vaccine Exclusion Criteria: No Exclusion Criteria History of Present Illness Chief complaint: 3 MONTH F/U Date of 1st surgery (if applicable): 11/24/24 Eduardo is a pleasant 64-year-old male with left knee pain and left knee arthritis. 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 He reports the pain has improved tremendously. He gets to about 90 to 95 degrees of range of motion. He reports that it does not limit him Personal History Red flag PMH: BMI BMI Counceling provided: No Pain Pain level (0-10): 0 Pain duration: NONE Pain location: posterior Pain quality: aching Pain timing: increases with activity and stairs Associated signs & symptoms: none Ambulatory data Ambulatory device: none Treatments Improvement with previous injections: No Improvement with PT: No Improvement with NSAIDS: n/a Review of Systems Review of Systems: All systems negative unless otherwise noted in HPI.
== END 2025-05-05 15:22 | disposition home or self-care (01) ==
LOC: HODSRG 14:38
PROVIDERS: Supervising Provider Orthopaedic Surgery Adult Reconstructive Orthopaedic Surgery; Visit Provider Orthopaedic Surgery Adult Reconstructive Orthopaedic Surgery
DX: M25.562 Pain in left knee (principal); M17.12 Unilateral primary osteoarthritis, left knee; Z96.652 Presence of left artificial knee joint; I10 Essential (primary) hypertension; E78.00 Pure hypercholesterolemia, unspecified; E11.9 Type 2 diabetes mellitus without complications
CPT/HCPCS: 99213; G0463